=== PATIENT | female | born 1945 | race Caucasian/White ===

== ENCOUNTER → 2024-03-29 11:25 | Outpatient (REF) | payer MEDICARE, OTHER, SELFPAY | LOC: HWWDC 11:25 | PROVIDERS: ATTENDING PHYSICIAN Family Medicine | DX: Z12.31 Encounter for screening mammogram for malignant neoplasm of breast (principal) | CPT/HCPCS: 77063; 77067 ==

== ENCOUNTER 2024-05-03 12:24 | Emergency (ER) | payer MEDICARE, OTHER, SELFPAY ==
[2024-05-03 12:43] VITALS: BP 128/79
[2024-05-03 13:02] LABS: % Basophils 0.2 % (0-2); % Eosinophils 0.1 % (0-6); % Immature Granulocytes 0.5 % (0-0.5); % Lymphocytes 5.6 % (20.5-51.1); % Monocytes 9.4 % (1.7-9.3); % Neutrophils 84.2 % (42.2-75.2); Absolute Immature Granulocytes 0.1 10^3/uL (0-0.05); Absolute Lymphocytes 0.5 10^3/uL (1.2-3.4); Absolute Monocytes 0.9 10^3/uL (0.1-0.6); Absolute Neutrophils 7.9 10^3/uL (1.4-6.5); Hemoglobin 12.4 g/dL (12.0-16.0); Mean Corp Hgb Conc. 34.4 g/dL (33.0-37.0); Mean Corpuscular Hgb 30.2 pg (27.0-31.0); Mean Corpuscular Volume 87.8 fL (81.0-99.0); Mean Platelet Volume 8.8 fL (7.4-10.4); Nucleated Red Blood Cells % 0 %; Platelet Count 300 10^3/uL (130-400); Red Cell Dist. Width 12.4 % (11.5-14.5); White Blood Cell Count 9.3 10^3/uL (4.8-10.8)
[2024-05-03 13:21] LABS: ALT (SGPT) 32 U/L (0-35); AST (SGOT) 42 U/L (14-36); Albumin 3.9 g/dl (3.5-5.0); Alkaline Phosphatase 79 U/L (38-126); Blood Urea Nitrogen 14 mg/dl (7-17); Calcium 9.1 mg/dl (8.4-10.2); Carbon Dioxide 23 mmol/L (22-30); Chloride 98 mmol/L (98-107); Glucose 136 mg/dl (70-99); Potassium 3.8 mmol/L (3.5-5.1); Sodium 134 mmol/L (135-145); Total Bilirubin 1.1 mg/dl (0.2-1.3); eGFR > 60.00
[2024-05-03 15:16] VITALS: BP 130/69
[2024-05-03 15:28] VITALS: BMI 21.4
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
[2024-05-03] MEDS: TORADOL 30 MG IM (18:09)
== END 2024-05-03 18:41 | disposition home or self-care (01) ==
LOC: EMR 12:24
PROVIDERS: Emergency Medicine; EMERGENCY PHYSICIAN Student in an Organized Health Care Education/Training Program; FAMILY PHYSICIAN Family Medicine
DX: M54.9 Dorsalgia, unspecified (principal); M79.604 Pain in right leg
CPT/HCPCS: 99285; 96372; 71101; 72072; 73502; 80053; 85025; 93005

== ENCOUNTER 2025-07-01 14:40 | Observation (INO) | payer MEDICARE, OTHER, SELFPAY ==
[2025-07-01] VITALS (12 sets, daily range): BP systolic 69–163; BP diastolic 57–81; BMI 25.5; BMI 22.9
[2025-07-01 10:25] LABS: Hematocrit 37.1 % (37.0-47.0); Hemoglobin 12.6 g/dL (12.0-16.0); Mean Corp Hgb Conc. 34.0 g/dL (33.0-37.0); Mean Corpuscular Volume 89.0 fL (81.0-99.0); Nucleated Red Blood Cells % 0 %; Platelet Count 287 10^3/uL (130-400); Red Cell Dist. Width 13.3 % (11.5-14.5)
[2025-07-01 10:42] LABS: ALT (SGPT) 19 U/L (0-35); AST (SGOT) 25 U/L (14-36); Albumin 4.1 g/dl (3.5-5.0); Alkaline Phosphatase 86 U/L (38-126); Blood Urea Nitrogen 13 mg/dl (7-17); Calcium 8.4 mg/dl (8.4-10.2); Carbon Dioxide 24 mmol/L (22-30); Chloride 99 mmol/L (98-107); Glucose 114 mg/dl (70-99); Potassium 3.0 mmol/L (3.5-5.1); Sodium 133 mmol/L (135-145); Total Protein 7.4 g/dl (6.3-8.2); eGFR > 60.00
[2025-07-01 10:46] LABS: C-Reactive Protein 64.60 mg/L (0.0-10.00)
--- NOTE | 2025-07-01 11:22 | ED.GENMED ---
History of Present Illness
<RAHEL Santana - Last Filed: 07/01/25 13:46>
General
Chief Complaint: Musculo-Skeletal Complaint
Source: patient
Exam Limitations: none
Time Seen by Provider: 07/01/25 11:07
Nursing documentation reviewed up to this point in time: agreed with
History of Present Illness
History of Present Illness:
Patient is a 79 yr old female presents to the ER with complaint of pain and swelling to her right hand wrist area since Friday night for the past 3 days. Area has gradually gotten worse. She denies any fevers. She complains of throbbing pain
that radiates up to her shoulder. She denies any other bony joint pain. Denies any recent rash. No prior history of gout. She denies any recent injury or overuse type activity. she is right hand dominant.
She has had intermittent rash for past year and has seen Derm for this.
Phy Exam
<RAHEL Santana - Last Filed: 07/01/25 13:46>
General Physical Exam
General Presentation: no apparent distress
General age: appears stated age
General Skin: warm and dry
General Habitus: elderly
General Hydration: appears well hydrated
Neurological Exam
Neurological Exam: alert and oriented x3
Musculoskeletal Exam
Musculoskeletal Exam: other (rue with strong pulse + erythema swelling and tenderness to dorsal hand there is also swelling and redness to the wrist extending up to the forearm. Wrist and hand are very tender to palpation and patient has increased
pain with range of motion)
Skin Exam
Skin Exam: normal color and warm/dry
Psychiatric Exam
Psychiatric Exam: normal mood/affect
Course
<RAHEL Santana - Last Filed: 07/01/25 13:46>
Orders/Labs/Results
Orders:
Orders
07/01/25 10:06
CRP [C-Reactive Protein] Urgent
Complete Blood Count/With Diff Urgent
Comprehensive Metabolic Panel Urgent
Erythrocyte Sed Rate Urgent
Rheumatoid Agglutinin Urgent
Comment: ADD ON
Uric Acid Urgent
Comment: ADD ON
07/01/25 11:32
Add On- LAB Urgent
Tests Added?: uric acid level
Hand, Right 3 View [CR Hand - Right Min 3 Views] Urgent
Comment:
Reason For Exam: pain/redness/swelling
Wrist, Right 3 Views [CR Wrist - Right Min 3 Views] Urgent
Comment:
Reason For Exam: pain/redness no trauma
07/01/25 11:41
Ketorolac [Toradol] 15 mg IV NOW STA
Potassium Chloride [KCl] 40 meq PO NOW STA
07/01/25 11:51
Add On- LAB Urgent
Tests Added?: rheumatoid factor
07/01/25 13:24
Morphine Sulfate 2 mg IV NOW STA
07/01/25 14:22
Admit/Transfer Patient As Directed
Co-Sign Provider:
Level of Care: Observation services
Assign to:: Medical/Surgical
Physician / Group: ishaan Ma
Diagnosis: right wrist pain, hyponatremia, hypokalemia
PRN Pain Medication Management As Directed
May give lesser potent ordered pain med per pt: Yes
preference::
Protocol:: Medication orders for pain may be administered in a
manner that supports deferring to patient preference
when the pt is:
- Requesting an ordered lesser potent pain medication.
Least to most potent pain medications are defined
as: acetaminophen < NSAID < tramadol < opioids
(morphine, oxycodone, hydromorphone).
- Requesting a lesser dose of the same medication IF
ORDERED.
- Requesting a less intrusive route of administration
if both routes are prescribed by the provider (PO <
IV).
07/01/25 14:23
Code Status As Directed
Resuscitation Status: Full Code
07/01/25 Dinner
NPO
Allow oral meds: Yes
Allow clear liquids: No
07/01/25 15:27
Morphine Sulfate 2 mg IV Q4HPRN PRN
07/01/25 17:20
Acetaminophen [Tylenol] 650 mg PO Q4HPRN PRN
Bisacodyl [Dulcolax] 10 mg RECTAL [id number] PRN
Docusate W/Senna [Senokot-S] 1 tablet PO BIDPRN PRN
Polyethylene Glycol Powder [Miralax] 17 grams PO DAILYPRN PRN
07/01/25 17:20
Consult Interventional Radiology [IRAD CONSULT] Routine
Consulting Provider: John Perez
Was physician already notified: Yes
Procedure being ordered, including laterality if applicable: right wrist arthrocentesis
Acknowledgement that appropriate orders are entered: Yes
Activity As Directed
Activity Level: As Tolerated
Vital Signs As Directed
Frequency: Per unit guidelines
Weight As Directed
Frequency: Once
Comment: on admission
DX Deep Vein Thrombosis Video Routine
07/01/25 18:00
Enoxaparin Sodium [Lovenox] 40 mg SC QPM
Ketorolac [Toradol] 10 mg IV Q6HPRN PRN
07/01/25 22:00
Atorvastatin [Lipitor] 10 mg PO HS
Sertraline HCl [Zoloft] 100 mg PO HS
07/02/25 06:19
Basic Metabolic Panel IN AM
Complete Blood Count/No Diff IN AM
Abnormal Lab Results
07/01/25
10:06
WBC 13.3 H 10^3/uL
(4.8-10.8)
RBC 4.17 L 10^6/uL
(4.20-5.40)
Abs Immat Gran (auto) 0.2 H 10^3/uL
(0-0.05)
Absolute Neuts (auto) 11.4 H 10^3/uL
(1.4-6.5)
Absolute Lymphs (auto) 0.6 L 10^3/uL
(1.2-3.4)
Absolute Monos (auto) 0.9 H 10^3/uL
(0.1-0.6)
Immature Gran % 1.8 H %
(0-0.5)
Neutrophils % 86.0 H %
(42.2-75.2)
Lymphocytes % 4.8 L %
(20.5-51.1)
ESR 41 H mm/hour
(0-20)
Sodium 133 L mmol/L
(135-145)
Potassium 3.0 L mmol/L
(3.5-5.1)
Creatinine 0.5 L mg/dL
(0.6-1.0)
Glucose 114 H mg/dl
(70-99)
Total Bilirubin 1.6 H mg/dl
(0.2-1.3)
C-Reactive Protein 64.60 H mg/L
(0.0-10.00)
07/01/25 10:06
07/01/25 10:06
Vital Signs
Initial and Last Documented VS:
Initial Vital Signs
Temp Pulse Resp BP Pulse Ox
98.5 F 73 16 163/81 98
07/01/25 09:57 07/01/25 09:57 07/01/25 09:57 07/01/25 09:57 07/01/25 09:57
Last Documented Vital Signs
Temp Pulse Resp BP Pulse Ox
98 F 84 16 137/76 96
07/03/25 14:04 07/03/25 14:04 07/03/25 14:04 07/03/25 14:04 07/03/25 14:04
Locker Operator consulted with Physician
Locker Operator consulted with physician?: Yes
Name of Physician Consulted: Katiana
<Alfredo Saab MD - Last Filed: 07/03/25 18:09>
Orders/Labs/Results
Orders:
Orders
07/01/25 10:06
CRP [C-Reactive Protein] Urgent
Complete Blood Count/With Diff Urgent
Comprehensive Metabolic Panel Urgent
Erythrocyte Sed Rate Urgent
Rheumatoid Agglutinin Urgent
Comment: ADD ON
Uric Acid Urgent
Comment: ADD ON
07/01/25 11:32
Add On- LAB Urgent
Tests Added?: uric acid level
Hand, Right 3 View [CR Hand - Right Min 3 Views] Urgent
Comment:
Reason For Exam: pain/redness/swelling
Wrist, Right 3 Views [CR Wrist - Right Min 3 Views] Urgent
Comment:
Reason For Exam: pain/redness no trauma
07/01/25 11:41
Ketorolac [Toradol] 15 mg IV NOW STA
Potassium Chloride [KCl] 40 meq PO NOW STA
07/01/25 11:51
Add On- LAB Urgent
Tests Added?: rheumatoid factor
07/01/25 13:24
Morphine Sulfate 2 mg IV NOW STA
07/01/25 14:22
Admit/Transfer Patient As Directed
Co-Sign Provider:
Level of Care: Observation services
Assign to:: Medical/Surgical
Physician / Group: ishaan Ma
Diagnosis: right wrist pain, hyponatremia, hypokalemia
PRN Pain Medication Management As Directed
May give lesser potent ordered pain med per pt: Yes
preference::
Protocol:: Medication orders for pain may be administered in a
manner that supports deferring to patient preference
when the pt is:
- Requesting an ordered lesser potent pain medication.
Least to most potent pain medications are defined
as: acetaminophen < NSAID < tramadol < opioids
(morphine, oxycodone, hydromorphone).
- Requesting a lesser dose of the same medication IF
ORDERED.
- Requesting a less intrusive route of administration
if both routes are prescribed by the provider (PO <
IV).
07/01/25 14:23
Code Status As Directed
Resuscitation Status: Full Code
07/01/25 Dinner
NPO
Allow oral meds: Yes
Allow clear liquids: No
07/01/25 15:27
Morphine Sulfate 2 mg IV Q4HPRN PRN
07/01/25 17:20
Acetaminophen [Tylenol] 650 mg PO Q4HPRN PRN
Bisacodyl [Dulcolax] 10 mg RECTAL [id number] PRN
Docusate W/Senna [Senokot-S] 1 tablet PO BIDPRN PRN
Polyethylene Glycol Powder [Miralax] 17 grams PO DAILYPRN PRN
07/01/25 17:20
Consult Interventional Radiology [IRAD CONSULT] Routine
Consulting Provider: John Perez
Was physician already notified: Yes
Procedure being ordered, including laterality if applicable: right wrist arthrocentesis
Acknowledgement that appropriate orders are entered: Yes
Activity As Directed
Activity Level: As Tolerated
Vital Signs As Directed
Frequency: Per unit guidelines
Weight As Directed
Frequency: Once
Comment: on admission
DX Deep Vein Thrombosis Video Routine
07/01/25 18:00
Enoxaparin Sodium [Lovenox] 40 mg SC QPM
Ketorolac [Toradol] 10 mg IV Q6HPRN PRN
07/01/25 22:00
Atorvastatin [Lipitor] 10 mg PO HS
Sertraline HCl [Zoloft] 100 mg PO HS
07/02/25 06:19
Basic Metabolic Panel IN AM
Complete Blood Count/No Diff IN AM
Abnormal Lab Results
07/01/25
10:06
WBC 13.3 H 10^3/uL
(4.8-10.8)
RBC 4.17 L 10^6/uL
(4.20-5.40)
Abs Immat Gran (auto) 0.2 H 10^3/uL
(0-0.05)
Absolute Neuts (auto) 11.4 H 10^3/uL
(1.4-6.5)
Absolute Lymphs (auto) 0.6 L 10^3/uL
(1.2-3.4)
Absolute Monos (auto) 0.9 H 10^3/uL
(0.1-0.6)
Immature Gran % 1.8 H %
(0-0.5)
Neutrophils % 86.0 H %
(42.2-75.2)
Lymphocytes % 4.8 L %
(20.5-51.1)
ESR 41 H mm/hour
(0-20)
Sodium 133 L mmol/L
(135-145)
Potassium 3.0 L mmol/L
(3.5-5.1)
Creatinine 0.5 L mg/dL
(0.6-1.0)
Glucose 114 H mg/dl
(70-99)
Total Bilirubin 1.6 H mg/dl
(0.2-1.3)
C-Reactive Protein 64.60 H mg/L
(0.0-10.00)
07/01/25 10:06
07/01/25 10:06
Vital Signs
Initial and Last Documented VS:
Initial Vital Signs
Temp Pulse Resp BP Pulse Ox
98.5 F 73 16 163/81 98
07/01/25 09:57 07/01/25 09:57 07/01/25 09:57 07/01/25 09:57 07/01/25 09:57
Last Documented Vital Signs
Temp Pulse Resp BP Pulse Ox
98 F 84 16 137/76 96
07/03/25 14:04 07/03/25 14:04 07/03/25 14:04 07/03/25 14:04 07/03/25 14:04
<RAHEL Santana - Last Filed: 07/01/25 13:46>
MDM/Problems Addressed
Differential Diagnosis Includes:
not limited to: Cellulitis, gout, septic arthritis
MDM/Problems Addressed:
As documented patient is a 79-year-old female who presents with swelling pain and redness to right wrist and dorsal hand. No injury. Symptoms have started several days ago with no acute injury. No obvious fevers. Denies any rash. No other joint
pain. She is elevated white count of 13.3 she is afebrile. Sed rate and CRP are elevated as documented potassium incidentally mildly low she was given 1 dose of oral K-Dur. She was medicated with Toradol however still continues to have pain and
does require IV morphine. Case reviewed with orthopedics Dr. Greer.
As discussed there is a pathway patient to be admitted to the hospitalist service with interventional radiology to do aspiration and then if positive Ortho will receive a consult.
Discussed plan of care with patient and son.
<RAHEL Santana - Last Filed: 07/01/25 13:46>
*Radiology
Radiology exam reviewed: preliminary read by ED provider
*Pulse Oximetry
SaO2: 98
Oxygen Mode of Delivery: Room air
Patient hypoxic: no
*Critical Care Note
Total Time (30-74mins, 75-104mins- exclusive of procedures): Not Applicable
ED Attending Note
<RAHEL Santana - Last Filed: 07/01/25 13:46>
-
Portions of this chart may have been created with voice recognition software.� Occasional wrong word or��sound alike� substitutions may have occurred due to the inherent limitations of voice recognition software.
<Alfredo Saab MD - Last Filed: 07/03/25 18:09>
ED Attending Note
Patient seen and examined by attending physician: Yes
ED Attending Note:
Patient presents to ED secondary to worsening right hand/wrist pain with swelling, as well as redness and warmth over the past 3 days. Denies fever or chills. Denies trauma. Denies open wound. Denies loss of sensation or weakness. Denies
previous history of similar symptoms. Patient does have history of osteoporosis. 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
Physical Exam
General: mild painful distress, not acutely ill. afebrile
Head: nc/at. eomi
Neck: supple. no meningeal signs.
Abdomen: normal bowel sounds. not tender.
Neuro: alert and oriented x 3. no focal neurological deficits
Skin: no rash
Psychiatric: well kept. interactive and cooperative
Extremities: right wrist/hand: swelling/erythema from mid-hand up to mid-forearm, with diffuse tenderness
History and exam concerning for cellulitis versus gouty arthritis versus other etiology.
Discussed with on-call surgery, Dr. Greer. Recommends patient to be admitted under hospitalist service with IR at consultation for arthrocentesis. Further recommendations to be provided afterwards.
Discharge Plan
Departure
Patient Disposition: Admit
Date of Disposition: 07/01/25
Time of Disposition: 13:39
Admit to: Med/Surg
Admit to doctor: hospitalist
Presentation/result/management discussed w/ accepting MD/DO: Hospitalist
Patient with high blood pressure during this ER visit?: Yes
Covid-19: Not Applicable
Discharge Problem:
Acute wrist pain, Joint swelling
Interventions
Interventions:
*General Assessment Last Done: 07/01/25 11:16
*Neglect/Abuse Screening Last Done: 07/01/25 10:03
*ED COVID-19 Vaccine History Last Done: 07/01/25 17:34
*ED Influenza Vaccine History Last Done: 07/01/25 11:16
[facility] Fall Risk Assessment Tool Last Done: 07/01/25 11:16
*Risk Screen - Suicide (C-SSRS) Last Done: 07/01/25 10:03
*Nursing Disposition Last Done: 07/01/25 17:33
ED-Musculoskeletal Assessment Last Done: 07/01/25 11:16
Discharge Date and Time
Discharge Date/Time: 07/01/25 17:33
[2025-07-01 11:58] LABS: Uric Acid 2.6 mg/dl (2.5-6.2)
[2025-07-01] MEDS: TORADOL 15 MG IV (12:08)
[2025-07-01] MEDS: KCL 40 MEQ PO (12:08)
--- NOTE | 2025-07-01 13:39 | HPS.HSE ---
Family Physician
-
Family Physician: Marialuisa Arredondo
Chief Complaint
-
right wrist edema and pain
History of Present Illness
Patient is a 79-year-old female with past medical history significant for hyperlipidemia and anxiety who presented to [facility] ED for evaluation of right wrist edema and pain. Patient reports that she noticed some edema to right wrist on Friday with
some discomfort. 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 Patient reports that currently her pain is 8
out of 10, tingling and aching with itching between fingers. Pain radiates up arm into elbow and shoulder. She currently has no ROM to right wrist, limited ROM to right elbow and right shoulder. Patient denies any fever, chills, cough, shortness of
breath, chest pain, nausea, vomiting, constipation or diarrhea.
Medical History
Past Medical History
Past Medical History: Reports Other
Additional Past Medical History:
hyperlipidemia
anxiety
migraines
osteoporosis
Past Surgical History: Reports Other
Additional Past Surgical History:
tonsillectomy
bilateral THR
cataract removal
Social History
Tobacco: Non-smoker
Alcohol: Occasional
Drug: None
Living: Alone
Employment: Employed
Family History
Family History: Not pertinent
Allergies / Home Medications
Allergies reflects when Allergies were last updated in [employer].
Home Medications with original date entered in [employer]
Allergy/Medication List:
Allergies
Allergy/AdvReac Type Severity Reaction Status Date / Time
No Known Allergies Allergy Verified 11/14/24 20:09
Home Medications
atorvastatin 10 mg tablet (Lipitor) 10 mg PO QHS High Cholesterol 07/01/25
ibuprofen 200 mg tablet (Advil) 200 mg PO Q6HPRN PRN mild pain 07/01/25
sertraline 100 mg tablet 100 mg PO QHS Mental Health/Anxiety 07/01/25
Review of Systems
-
History Source: Patient
Constitutional: Denies Fever or Chills
EENT: Denies Sore Throat
Respiratory: Denies Cough, Hemoptysis or Trouble Breathing
Cardiac: Denies Chest Pain, Diaphoresis, Palpitations or Syncope
Abdomen/GI: Denies Abdominal Pain, Nausea, Vomiting or Diarrhea
: Denies Dysuria, Frequency or Urgency
Musculoskeletal: Reports Joint Swelling (right wrist ) and Other (right wrist pain, erythema, warmth and edema)
Skin: Denies Rash
Neurological: Denies Dizzy, Headache or Weakness
Endocrine: Denies Polyuria
Physical Exam
Vital Signs
Vital Signs
Temp Pulse Resp BP Pulse Ox
98.5 F 65 16 159/70 98
07/01/25 09:57 07/01/25 11:19 07/01/25 11:19 07/01/25 11:19 07/01/25 11:24
Physical Exam
General: Well Developed, Well Nourished, No Apparent Distress, Comfortable and Conversant
HEENT: NormoCephalic, Moist mucous membranes, PERRLA, Nose Appears Normal and Ears Appear Normal
Respiratory: Clear; No Wheezes, Rales, Rhonchi or Non Labored Respirations
Cardiac: S1/S2 and Regular Rhythm; No Murmur, Rub, Gallop or Peripheral Edema
GI: Soft, Non Tender, Non Distended and Normal Bowel Sounds
Musculoskeletal: No Clubbing, No Cyanosis and Other (right dorsal wrist with erythema, edema and warmth, tender to palpitation, no ROM )
Skin: Warm and IV/Catheter Site
Neuro: Awake and AO x 3
Psych: Calm and Intact Judgment/Insight
Laboratory Results
-
07/01/25 10:06
07/01/25 10:06
Laboratory Results
Total Bilirubin 1.6 mg/dl (0.2-1.3) H 07/01/25 10:06
AST 25 U/L (14-36) 07/01/25 10:06
ALT 19 U/L (0-35) 07/01/25 10:06
Alkaline Phosphatase 86 U/L (38-126) 07/01/25 10:06
Data Reviewed
-
Lab Data: Labs Reviewed by me (WBC 13.3, Neut 86.0, Na+ 133, K+ 3.0, CRP 64.60)
Impression/Plan
-
IMPRESSION/PLAN:
#acute right wrist pain, edema and erythema 2/2 gout vs. infection vs. injury
WBC 13.3, Neut 86.0, CRP 64.60
Rheumatoid Factor: pending
Right hand/wrist x-ray: pending
- Admit to med/surg
- Consult IR for right wrist arthrocentesis
- pain regimen
- follow joint fluid cultures
#hypokalemia
K+ 3.0
- repleted with KCl in ED
- monitor BMP
#hyponatremia
Na+ 133
appears patients baseline
- monitor BMP
#hyperlipidemia
- continue atorvastatin
#anxiety
- continue sertraline
Code status: full code
DVT prophylaxis: Lovenox sq
[2025-07-01] MEDS: MORPHINE SULFATE 2 MG IV ×2 (13:51→15:36)
--- NOTE | 2025-07-01 15:05 | CM ---
Chart reviewed and KEBEDE reviewed with patient and son Xu
Spoke with patient and son at ED bedside
Lives alone 2 [address]
independent with ADLs and ambulation
[facility] [employer]
no DME
right hand dominant
PCP Marialuisa Arredondo
[facility] on [address]
no hx of VN
Distant hx of SNF in [place] unsure of name
DCP is to go home
Son can drive her
CM will continue to follow up for dcp needs
--- NOTE | 2025-07-01 15:44 | W.PN.UPDATE ---
Update Note
Progress Note Update
Attending note
Patient seen independently
79-year-old woman with wrist edema and pain. On Friday she had increased edema and significant pain with limited ROM and has progressively worsened since then. Currently her pain is 8 out of 10, tingling and aching with itching between fingers.
Pain radiates up arm into elbow and shoulder. Currently no ROM to right wrist, limited ROM to right elbow and right shoulder. Patient denies any fever, chills, cough, shortness of breath, chest pain, nausea, vomiting, constipation or diarrhea. The
wrist is warm to the touch.
Imaging
Chronic deformity and degenerative changes of the distal radius, carpal bones, and carpal-metacarpal articulations.
No acute fracture or dislocation.
Past Medical History
hyperlipidemia
anxiety
migraines
osteoporosis
Past Surgical History: Reports Other
Additional Past Surgical History:
tonsillectomy
bilateral THR
cataract removal
Physical Exam
General: Well Developed, Well Nourished, No Apparent Distress, Comfortable and Conversant
HEENT: NormoCephalic,
Respiratory: Clear;
Cardiac: S1/S2 and Regular Rhythm; No Murmur, Rub, Gallop
GI: Soft, Non Tender, Non Distended
Skin: right dorsal wrist with erythema, edema and warmth, tender to palpitation, no ROM
Neuro: Awake and AO x 3
Psych: Calm
IMPRESSION/PLAN:
1. acute right wrist pain, edema and erythema 2/2 gout vs. infection vs. injury
- Consult IR for right wrist arthrocentesis
- pain regimen
- follow joint fluid cultures
2. hypokalemia
- repleted with KCl in ED
- monitor BMP
Please see [facility]UBER note for full details on
hyponatremia
hyperlipidemia
anxiety
Code status: full code
DVT prophylaxis: Lovenox sq
[2025-07-01] MEDS: LOVENOX 40 MG SC (18:29)
[2025-07-01] MEDS: LIPITOR 10 MG PO (21:00)
[2025-07-01] MEDS: ZOLOFT 100 MG PO (21:03)
[2025-07-02] MEDS: MORPHINE SULFATE 2 MG IV ×3 (01:44→20:02)
[2025-07-02 06:58] LABS: Hematocrit 33.1 % (37.0-47.0); Hemoglobin 11.2 g/dL (12.0-16.0); Mean Corp Hgb Conc. 33.8 g/dL (33.0-37.0); Mean Corpuscular Volume 90.4 fL (81.0-99.0); Platelet Count 273 10^3/uL (130-400); Red Cell Dist. Width 13.5 % (11.5-14.5)
[2025-07-02 07:27] LABS: Blood Urea Nitrogen 21 mg/dl (7-17); Calcium 8.0 mg/dl (8.4-10.2); Carbon Dioxide 23 mmol/L (22-30); Chloride 104 mmol/L (98-107); Estimated Creatinine Clearance 52 ml/min; Glucose 111 mg/dl (70-99); Potassium 3.5 mmol/L (3.5-5.1); Sodium 133 mmol/L (135-145); eGFR > 60.00
[2025-07-02 07:45] VITALS: BP 142/69
--- NOTE | 2025-07-02 09:29 | W.PN.HOSP.TC ---
Today's Communication/Plan
-
Start IV antibiotics while awaiting fluid culture result
If cultures negative can discharge on oral antibiotics
Assessment / Plan
Assessment / Plan
Acute right wrist swelling
IR performed arthrocentesis
IV and p.o. pain meds PRN
Joint fluid cultures pending
Leukocytosis improved
RF pending
empiric IV cefazolin
if cx positive will need ortho hand c/s
Hypokalemia�resolved
Repleted
Hyponatremia
Continue to monitor
Fluid restriction
HLD
Statin
Anxiety
Sertraline
DVT PPx
Lovenox
Anticipated Discharge: Within 24 hours
Subjective/Interval History
-
Date of Service: July 02, 2025
Patient feels her wrist swelling is improving but not completely down, still hurts when she tries to move it. Son at bedside. Updated on plan of care, both verbalized understanding.
Objective Data
-
Labs:
Laboratory Results
07/02/25
06:19
WBC 10.8
Hgb 11.2 L
Hct 33.1 L
Plt Count 273
Sodium 133 L
Potassium 3.5
Chloride 104
Carbon Dioxide 23
BUN 21 H
Creatinine 0.6
Glucose 111 H
Calcium 8.0 L
Vital Signs:
Vital Signs
Temp Pulse Resp BP Pulse Ox
97.5 F 65 18 142/69 96
07/02/25 07:45 07/02/25 07:45 07/02/25 07:45 07/02/25 07:45 07/02/25 07:45
Review of Systems
-
History Source: Patient
All other systems: Reviewed and negative
Physical Exam
-
General: No Apparent Distress
HEENT: Moist Mucous Membranes, Anicteric and PERRLA
Respiratory: Clear to Auscultation; Negative Wheezes, Rales or Rhonchi
Cardiac: Regular Rhythm and S1/S2; Negative Murmur, Rub or Gallop
GI: Soft, Nontender, Nondistended and Normal Bowel Sounds
Musculoskeletal: Other (R hand/wrist warm/swollen, not able to make fist, no induration or fluctuance)
Skin: Warm and Dry; Negative Rash, Ulcers or Lesions
Neuro: Awake and AO x 3
Hematologic / Lymphatic: No Lymphadenopathy
Psych: Calm
Data Reviewed
-
Diagnostic Radiology: Report Reviewed by me and Discussed with Patient
Labs: Labs Reviewed by me and Discussed with Patient
[2025-07-02] MEDS: ANCEF 10 IV ×2 (13:24→22:25)
[2025-07-02] MEDS: TORADOL 10 MG IV (13:30)
[2025-07-02 15:13] VITALS: BP 122/68
[2025-07-02] MEDS: LOVENOX 40 MG SC (17:07)
[2025-07-02] MEDS: LIPITOR 10 MG PO (22:24)
[2025-07-02] MEDS: ZOLOFT 100 MG PO (22:24)
[2025-07-02 23:46] VITALS: BP 126/71
[2025-07-03] MEDS: TORADOL 10 MG IV ×2 (01:24→11:59)
[2025-07-03] MEDS: ANCEF 10 IV (05:38)
[2025-07-03 07:20] VITALS: BP 153/67
[2025-07-03 07:21] LABS: Hematocrit 33.3 % (37.0-47.0); Hemoglobin 11.4 g/dL (12.0-16.0); Mean Corp Hgb Conc. 34.2 g/dL (33.0-37.0); Mean Corpuscular Volume 92.0 fL (81.0-99.0); Nucleated Red Blood Cells % 0 %; Platelet Count 284 10^3/uL (130-400); Red Cell Dist. Width 13.5 % (11.5-14.5)
[2025-07-03 08:14] LABS: Blood Urea Nitrogen 22 mg/dl (7-17); Calcium 7.7 mg/dl (8.4-10.2); Carbon Dioxide 25 mmol/L (22-30); Chloride 103 mmol/L (98-107); Estimated Creatinine Clearance 52 ml/min; Glucose 96 mg/dl (70-99); Potassium 3.5 mmol/L (3.5-5.1); Sodium 134 mmol/L (135-145); eGFR > 60.00
--- NOTE | 2025-07-03 12:25 | W.DCSUMMARY ---
Discharge Summary
Discharge Data
Date of Admission: 07/01/25
Date of Discharge: 07/03/25
Total time spent discharging patient (in min): 35
-
Pending Results: No
Hospital Course
Attending physician on day of discharge:
Tracy Radford MD
Discharge diagnosis:
Right wrist swelling
Secondary diagnoses:
Hypokalemia
Hyponatremia
Consultations:
None
Procedures:
Joint aspiration by IR
Hospital course:
79F p/w right wrist edema and pain, sudden onset, with no trauma or puncture noted. She had mildly elevated white blood cell count, and elevated inflammatory markers (ESR and CRP). Uric acid was WNL. IR performed a joint aspiration, fluid
cultures were negative. She was empirically given IV Ancef, she noted improvement in her wrist swelling. Possibilities include cellulitis or inflammatory swelling from RA or OA. The pain was treated with IV Toradol. She was discharged with
course of oral antibiotics and PRN oral ibuprofen. She was advised to follow-up with her PCP to monitor for improvement and for further workup if needed. Her son was at bedside and he and patient both verbalized understanding of the plan of care.
Physical exam on discharge:
Gen: NAD
HEENT: PERRLA, EOMI, MMM, neck supple
Cards: RRR, no M/G/R
Resp: Lungs CTAB, no W/R/R
GI: soft, NT/ND/NABS
MSK: Improving right wrist swelling
Skin: warm and dry, no rash, ulcer or lesions
Heme: No LAD
Psych: Calm
Neuro: AAOx3
Discharge disposition:
Home with home services
Discharge Plan
-
Patient Disposition: Home with Home Care
Discharge Diagnosis/Procedures: R wrist swelling
Diet: Regular
Activity: As tolerated
Other Services: VN and OT
Referrals:
Marialuisa Arredondo MD [Family Provider, [facility]] - in one to two weeks
Prescriptions:
New
cephalexin 500 mg capsule
500 mg PO BID Qty: 10 0RF
ibuprofen 600 mg tablet
600 mg PO Q6H PRN (Reason: pain and swelling) Qty: 30 0RF
Continued
atorvastatin [Lipitor] 10 mg Tablet
10 mg PO QHS
sertraline 100 mg Tablet
100 mg PO QHS
Discontinued
ibuprofen [Advil] 200 mg Tablet
200 mg PO Q6HPRN PRN (Reason: mild pain)
Discharge Orders:
Discharge Patient (As Directed); Ordered 07/03/25
Ordered By: Tracy Radford
Discharge Date and Time
Discharge Date/Time: 07/03/25 14:07
Print Language: BERMUDIAN
[2025-07-03 14:04] VITALS: BP 137/76
[2025-07-04 12:57] LABS: Rheumatoid Agglutinin Less Than 10 IU (<10 IU)
== END 2025-07-03 14:07 | disposition home health service (06) ==
LOC: 4 WEST ACU 14:40
PROVIDERS: Emergency Medicine; Nurse Practitioner Family; ADMITTING PHYSICIAN Internal Medicine; ATTENDING PHYSICIAN Internal Medicine; CONSULT PHYSICIAN Radiology Vascular & Interventional Radiology; EMERGENCY PHYSICIAN Emergency Medicine; FAMILY PHYSICIAN Family Medicine
DX: M25.431 Effusion, right wrist (principal); R60.0 Localized edema; M25.531 Pain in right wrist; R79.82 Elevated C-reactive protein (CRP); E87.1 Hypo-osmolality and hyponatremia; E78.5 Hyperlipidemia, unspecified; F41.9 Anxiety disorder, unspecified; M81.0 Age-related osteoporosis without current pathological fracture; E87.6 Hypokalemia; Z79.899 Other long term (current) drug therapy
CPT/HCPCS: 20606; 73110; 73130; 80048; 80053; 84550; 85025; 85027; 85652; 86140; 86430; 87015; 87070; 87205; 96374; 96375; 99284; G0378